=== PATIENT | female | born 1965 | race Caucasian/White ===

== ENCOUNTER 2017-05-30 08:50 | Day surgery (SDC) | payer OTHER ==
[~2017-05-30] VITALS: Ht 157.5 cm; Wt 99.8 kg
[~2017-05-30 08:50] MED LIST: CLARITIN10 M3 PO; COMBIVENT RESPIM4 GM IH; DURAGESIC25 MCG TD; ELAVIL50 MG PO; FENTANYL1 EAC5 TD; LORATADINE10 M2 PO; MELOXICAM7.5 MG PO; METHOCARBAMOL500 MG PO; MINIPRESS5 MG PO; NEURONTIN600 MG PO; OXYCODONE-APAP1 EAC6 PO; PERCOCET 10/1 TABLET PO; PERCOCET 5/31 TABLET PO; PRAZOSIN HCL1 MG PO; PRILOSEC20 MG PO; PRILOSEC40 MG PO; PROAIR HFA8.5 GM IH; PROVENTIL,2.5 MG/3 M IH; ROBAXIN500 MG PO; SINEQUAN100 MG PO; SYMBICORT60 INHALAT IH; VENTOLIN HFA18 GM IH; XANAX1 MG PO
[2017-05-30 10:06] VITALS: BP 118/69
[2017-05-30] MEDS ORDERED: PERCOCET 5/31 TABLET PO (15:45)
[2017-05-30 19:25] VITALS: BP 145/100
[2017-05-30 20:10] VITALS: BP 156/87
== END 2017-05-30 20:42 | disposition home or self-care (01) ==
LOC: SDC 08:50
PROC: 0WUF4JZ Supplement Abdominal Wall with Synthetic Substitute, Percutaneous Endoscopic Approach (ICD-10-PCS; principal; 2017-05-30)
DX: K43.6 Other and unspecified ventral hernia with obstruction, without gangrene (principal); J44.9 Chronic obstructive pulmonary disease, unspecified; E66.01 Morbid (severe) obesity due to excess calories; Z68.38 Body mass index [BMI] 38.0-38.9, adult; K21.9 Gastro-esophageal reflux disease without esophagitis; F32.9 Major depressive disorder, single episode, unspecified; I10 Essential (primary) hypertension; F17.200 Nicotine dependence, unspecified, uncomplicated; N39.3 Stress incontinence (female) (male); Z90.49 Acquired absence of other specified parts of digestive tract; Z82.49 Family history of ischemic heart disease and other diseases of the circulatory system
CPT/HCPCS: 88305; 93005; 94640; C1781; J0330; J1100; J1170; J2250; J2405; J3010